=== PATIENT | male | born 1995 | race African-American/Black ===

== ENCOUNTER 2019-12-13 12:29 | Emergency (ER) | payer SELFPAY ==
[~2019-12-13] VITALS: Ht 185.4 cm; Wt 66.7 kg
--- NOTE | 2019-12-13 12:55 | Emergency Room Report ---
History of Present Illness General Chief Complaint: Lower Extremity Injury Source: Patient (Brandon Cruz MD) Present Illness HPI Patient presents with left thigh pain. Is more medial extending underneath his testicle into his groin. 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 He has had problems with his back and had a CT done in June ( [facility]). He had some variable results that they told him. Usually he does get back pain from martial arts however this feels different to him today. He denies any fevers or chills. He took some Tylenol and smoke some cannabis. Pain is somewhat better at this time but he complains of 9/10 pain and described as sharp and "deep". He denies any numbness but he feels a little bit of left sensation in the cheek of his buttock and reports the discomfort as "like asleep" and "tingling". The patient states that for over a year he has had problems with urinary incontinence. In June he had pain that was slightly different for the CAT scan. He states it was not "as deep." No incontinence of stool. He states he frequently had injuries to his back from performing martial arts. He last did this a week ago. There was no increase in the pain at that time. He denies fever, chills, blood thinners, IVDA, oncologic problems. No chest pain, palpitations, nausea, vomiting, diarrhea, dysuria, abdominal pain , shortness of breath, rashes, depression, anxiety, visual changes, dizziness, headache, cough. 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 Reviewed Nursing Documentation: PMH: Agreed; PSxH: Agreed (Brandon Cruz MD) Nursing Documentation-PMH Past Medical History: No Stated History (Brandon Cruz MD) Review of Systems All Other Systems: negative except mentioned in HPI (Brandon Cruz MD) Physical Exam Vital Signs Date Time Temp Pulse Resp B/P (MAP) Pulse Ox O2 Delivery O2 Flow Rate FiO2 12/12/20 12:39 98.2 100 20 138/75 (96) 99 Room Air Sp02 EP Interpretation: reviewed, normal General Appearance: well appearing, no apparent distress, GCS 15, non-toxic Head: normocephalic, atraumatic Eyes: bilateral eye normal inspection, bilateral eye PERRL, bilateral eye EOMI ENT: moist mucus membranes Neck: full range of motion, supple Respiratory: normal inspection Cardiovascular #1: regular rate, rhythm, no edema Cardiovascular #2: 2+ radial (R) Gastrointestinal: normal inspection Genitourinary: no CVA tenderness, other - no bone or paraspinous tenderness. SLR + left at 30 degrees, more increased pain in leg. Some tenderness to palpation medial left thigh Musculoskeletal: digits/nails normal, no calf tenderness Neurologic: alert, motor strength/tone normal - bilateral LE, speech normal, other - alleged different sensation left medial thigh extending to perineum Psychiatric: mood/affect normal Reflexes: 2+ knee (R), 2+ knee (L); 1+ ankle (R), 1+ ankle (L) Skin: normal color, no rash, warm/dry (Brandon Cruz MD) Medical Decision Making Diagnostic Impression: Primary Impression: Left leg paresthesias Additional Impressions: Lumbar disc disease Incontinence of urine - chronic ER Course Patient presents with left inner thigh pain and tingling that is worsened today. It is disconcerting that he is complaining about incontinence of urine that is been over a year. Differential includes degenerative disc disease, cauda equina syndrome, muscle strain amongst others. His back is not tender at this time so sciatica is less likely although he does have some discomfort with straight leg raise but is more medial thigh. Patient be treated with ibuprofen. CT of the lumbar spine is indicated. Patient stated was concerned about multiple sclerosis. The clinical presentation is not consistent with MS. The urinary incontinence has been present for a year according to the patient. The perineal involvement is disconcerting. Some improvement with Motrin. Still has tingling sensation and pain lifting leg. Discussed with [facility] radiologist. She states can't see central cord process but need MRI contrast to be sure. Labs and MRI ordered. Signed out to Dr. Gongora to review labs and MRI. (Brandon Cruz MD) ER Course Patient signed out to me from previous provider pending MRI and lab results. Briefly, this is a 24-year-old male presenting with paresthesias lower extremities and incontinence of urine. Patient's blood work and urine have returned within normal limits. No indication of kidney injury, bladder infection or other significant disturbances. MRI is resulted showing no evidence of mass, cauda equina or infectious process. The patient is ambulatory and currently has no complaints. This may be a peripheral nerve issue and the patient will be treated with nonsteroidal anti-inflammatories to begin with. He will be referred to his PMD for reevaluation. Copies of his imaging results have been included in his discharge paperwork. We discussed reasons to return to the emergency department. He understands and agrees with this treatment plan. Laboratory Tests Test 12/13/19 14:55 12/13/19 15:20 White Blood Count 6.7 K/UL (4.8-10.8) Red Blood Count 4.88 M/UL (4.70-6.10) Hemoglobin 13.1 G/DL (14.2-18.0) L Hematocrit 37.7 % (42.0-52.0) L Mean Corpuscular Volume 77 FL (80-99) L Mean Corpuscular Hemoglobin 26.9 PG (27.0-31.0) L Mean Corpuscular Hemoglobin Concent 34.8 G/DL (32.0-36.0) Red Cell Distribution Width 11.7 % (11.6-14.8) Platelet Count 169 K/UL (150-450) Mean Platelet Volume 8.9 FL (6.5-10.1) Neutrophils (%) (Auto) 66.4 % (45.0-75.0) Lymphocytes (%) (Auto) 22.7 % (20.0-45.0) Monocytes (%) (Auto) 8.4 % (1.0-10.0) Eosinophils (%) (Auto) 1.6 % (0.0-3.0) Basophils (%) (Auto) 0.9 % (0.0-2.0) Erythrocyte Sedimentation Rate 2 MM/HR (0-15) Prothrombin Time 12.2 SEC (9.30-11.50) H Prothrombin Time INR 1.1 (0.9-1.1) Activated Partial Thromboplast Time 28 SEC (23-33) Sodium Level 142 MMOL/L (136-145) Potassium Level 4.1 MMOL/L (3.5-5.1) Chloride Level 105 MMOL/L (98-107) Carbon Dioxide Level 28 MMOL/L (21-32) Anion Gap 9 mmol/L (5-15) Blood Urea Nitrogen 7 mg/dL (7-18) Creatinine 1.0 MG/DL (0.55-1.30) Estimated Glomerular Filtration Rate > 60 mL/min (>60) Glucose Level 106 MG/DL (74-106) Calcium Level 8.5 MG/DL (8.5-10.1) Total Bilirubin 0.7 MG/DL (0.2-1.0) Aspartate Amino Transferase (AST) 24 U/L (15-37) Alanine Aminotransferase (ALT) 20 U/L (12-78) Alkaline Phosphatase 61 U/L (46-116) C-Reactive Protein, Quantitative < 0.4 mg/dL (0.00-0.90) Total Protein 6.4 G/DL (6.4-8.2) Albumin 3.9 G/DL (3.4-5.0) Globulin 2.5 g/dL Albumin/Globulin Ratio 1.6 (1.0-2.7) Urine Color Yellow Urine Appearance Clear Urine pH 9 (4.5-8.0) Urine Specific Alsey 1.010 (1.005-1.035) Urine Protein Negative (NEGATIVE) Urine Glucose (UA) Negative (NEGATIVE) Urine Ketones Negative (NEGATIVE) Urine Blood Negative (NEGATIVE) Urine Nitrite Negative (NEGATIVE) Urine Bilirubin Negative (NEGATIVE) Urine Urobilinogen Normal MG/DL (0.0-1.0) Urine Leukocyte Esterase 1+ (NEGATIVE) H Urine RBC 2-4 /HPF (0 - 0) H Urine WBC 0 /HPF (0 - 0) Urine Squamous Epithelial Cells None /LPF (NONE/OCC) Urine Bacteria Occasional /HPF (NONE) (Yuriy Gongora MD) CT/MRI/US Diagnostic Results CT/MRI/US Diagnostic Results : Impression Final Report EXAM: MR Lumbar Spine Without and With Intravenous Contrast CLINICAL HISTORY: PAIN, r/o cauda equina, mass/infection TECHNIQUE: Magnetic resonance images of the lumbar spine without and with intravenous contrast in multiple planes. COMPARISON: Same-day lumbar spine CT FINDINGS: Vertebrae: Unremarkable. No acute fracture. Spinal cord: Conus terminates at T12. No abnormal enhancement. Soft tissues: Unremarkable. DISCS/SPINAL CANAL/NEURAL FORAMINA: L1-L2: Unremarkable. No significant disc disease. No stenosis. L2-L3: Unremarkable. No significant disc disease. No stenosis. L3-L4: Unremarkable. No significant disc disease. No stenosis. L4-L5: Unremarkable. No significant disc disease. No stenosis. L5-S1: Unremarkable. No significant disc disease. No stenosis. IMPRESSION: 1. Unremarkable study. 2. No findings to suggest cauda equina, mass, or infection. Radiologist: Mark Prado MD Electronically Signed: 12/13/19 17:45 Study ready at 17:41 and initial results transmitted at 17:45 (Yuiry Gongora MD) Last Vital Signs Date Time Temp Pulse Resp B/P (MAP) Pulse Ox O2 Delivery O2 Flow Rate FiO2 12/13/19 13:36 98.3 12/13/19 12:39 100 20 138/75 (96) 99 Room Air Status: improved (Brandon Cruz MD) Disposition: HOME, SELF-CARE Condition: Stable Scripts Ibuprofen* (MOTRIN*) 600 Mg Tablet 600 MG ORAL Q6H PRN for For Pain, #30 TAB 0 Refills Prov: Yuriy Gongora MD 12/13/19 Brandon Cruz MD December 13, 2019 12:55 Yuriy Gongora MD December 13, 2019 17:56
--- NOTE | 2019-12-13 13:09 | NUR ---
ED Nurse Note:pt. c/o left leg pain ,no injury reported, skin is intact, seen by
--- NOTE | 2019-12-13 14:03 | NUR ---
ED Nurse Note:pt. had CT scan done
--- NOTE | 2019-12-13 14:06 | Diagnostic Imaging Report ---
EXAM: CT Lumbar Spine Without Intravenous Contrast CLINICAL HISTORY: WEAK TECHNIQUE: Axial computed tomography images of the lumbar spine without intravenous contrast. CTDI is 5.00 mGy and DLP is 161.2 mGy-cm. One or more of the following dose reduction techniques were used: automated exposure control, adjustment of the mA and/or kV according to patient size, use of iterative reconstruction technique. COMPARISON: No relevant prior studies available. FINDINGS: Vertebrae: Unremarkable. No acute fracture. Normal alignment. Normal bony matrix. Discs/spinal canal/neural foramina: L3-4 broad-based disc bulge with a left far lateral component into the neural foramina. Moderate to severe bilateral neural foraminal narrowing. Mild central canal narrowing. L4-5 broad-based disc bulge with mild central canal narrowing. Moderate to severe bilateral neural foraminal narrowing. Soft tissues: Unremarkable. Spleen: 6.2 cm cystic collection in left upper abdomen with calcific rim, anterior aspect of spleen, not fully imaged. Stomach and bowel: Mild thickening of the colon. Intraperitoneal space: Small free fluid in the pelvis is nonspecific. IMPRESSION: 1. L3-4 and L4-5 broad-based disc bulges, mild central canal narrowing and moderate to severe bilateral neural foraminal narrowing. 2. 6.2 cm cystic collection in left upper abdomen with calcific rim, anterior aspect of spleen, not fully imaged. 3. Small free fluid in the pelvis is nonspecific. 4. Mild thickening of the colon. <MYCVCSECTION> Communications: 12/13/19 14:46 Call From Gisell Cruz MD on 12/12 14:46 (-07:00)
[2019-12-13] MEDS ORDERED: Gadavist 7.5mMol/7.5ml vial IV PRN (14:45)
--- NOTE | 2019-12-13 15:06 | NUR ---
ED Nurse Note:blood sent to [facility]
[2019-12-13 15:21] LABS: ANION GAP 9 mmol/L (5-15); BLOOD UREA NITROGEN 7 mg/dL (7-18); CALCIUM 8.5 MG/DL (8.5-10.1); CARBON DIOXIDE 28 MMOL/L (21-32); CHLORIDE 105 MMOL/L (98-107); INR 1.1 (0.9-1.1); POTASSIUM 4.1 MMOL/L (3.5-5.1); SODIUM 142 MMOL/L (136-145)
[2019-12-13 15:25] LABS: ALANINE AMINOTRANSFERASE 20 U/L (12-78); ALBUMIN 3.9 G/DL (3.4-5.0); ALBUMIN/GLOBULIN RATIO 1.6 (1.0-2.7); ALKALINE PHOSPHATASE 61 U/L (46-116); ASPARTATE AMINO TRANSFERASE 24 U/L (15-37); BILIRUBIN,TOTAL 0.7 MG/DL (0.2-1.0)
[2019-12-13 15:34] LABS: BASOPHILS % (AUTO) 0.9 % (0.0-2.0); EOSINOPHILS % (AUTO) 1.6 % (0.0-3.0); HEMATOCRIT 37.7 % (42.0-52.0); HEMOGLOBIN 13.1 G/DL (14.2-18.0); LYMPHOCYTES % (AUTO) 22.7 % (20.0-45.0); MEAN CORPUSCULAR VOLUME 77 FL (80-99); MONOCYTES % (AUTO) 8.4 % (1.0-10.0); NEUTROPHILS % (AUTO) 66.4 % (45.0-75.0); PLATELET COUNT 169 K/UL (150-450); RED BLOOD COUNT 4.88 M/UL (4.70-6.10); RED CELL DISTRIBUTION WIDTH 11.7 % (11.6-14.8); WHITE BLOOD COUNT 6.7 K/UL (4.8-10.8)
[2019-12-13 16:24] LABS: APPEARANCE,URINE CLEAR; BILIRUBIN, URINE NEGATIVE (NEGATIVE); GLUCOSE, URINE (UA) NEGATIVE (NEGATIVE); KETONES,URINE NEGATIVE (NEGATIVE); LEUKOCYTE ESTERASE ,URINE 1+ (NEGATIVE); NITRITE,URINE NEGATIVE (NEGATIVE); PH,URINE 9 (4.5-8.0); PROTEIN,URINE NEGATIVE (NEGATIVE); UROBILINOGEN,URINE NORMAL MG/DL (0.0-1.0)
[2019-12-13 16:29] LABS: COLOR,URINE YELLOW
[2019-12-13] MEDS ORDERED: IBUPROFEN600 M1 ORAL (17:50)
[2019-12-13 18:10] VITALS: BP 138/75
--- NOTE | 2019-12-13 18:10 | NUR ---
ER DISCHARGE NOTE: Patient is cleared to be discharged per ERMD, pt is aox4, on room air, with stable vital signs. pt was given dc and prescription instructions, pt was able to verbalize understanding, pt id band and iv site removed without complications. pt is able to ambulate with steady gait. pt took all belongings.
--- NOTE | 2019-12-13 20:18 | Diagnostic Imaging Report ---
EXAM: MR Lumbar Spine Without and With Intravenous Contrast CLINICAL HISTORY: PAIN, r/o cauda equina, mass/infection TECHNIQUE: Magnetic resonance images of the lumbar spine without and with intravenous contrast in multiple planes. COMPARISON: Same-day lumbar spine CT FINDINGS: Vertebrae: Unremarkable. No acute fracture. Spinal cord: Conus terminates at T12. No abnormal enhancement. Soft tissues: Unremarkable. DISCS/SPINAL CANAL/NEURAL FORAMINA: L1-L2: Unremarkable. No significant disc disease. No stenosis. L2-L3: Unremarkable. No significant disc disease. No stenosis. L3-L4: Unremarkable. No significant disc disease. No stenosis. L4-L5: Unremarkable. No significant disc disease. No stenosis. L5-S1: Unremarkable. No significant disc disease. No stenosis. IMPRESSION: 1. Unremarkable study. 2. No findings to suggest cauda equina, mass, or infection.
== END 2019-12-13 18:25 | disposition home or self-care (01) ==
LOC: EMR 13:00
DX: R20.2 Paresthesia of skin (principal); M51.36 Other intervertebral disc degeneration, lumbar region; R32 Unspecified urinary incontinence; F17.200 Nicotine dependence, unspecified, uncomplicated; F12.90 Cannabis use, unspecified, uncomplicated
CPT/HCPCS: 36415; 72131; 72149; 80053; 81001; 85025; 85610; 85651; 85730; 86140; 99284; A9585